=== PATIENT | female | born 1955 | race Caucasian/White ===

== ENCOUNTER 2016-12-07 09:50 | Emergency (ER) | payer OTHER ==
[~2016-12-07] VITALS: Ht 154.9 cm; Wt 62.2 kg
[2016-12-07 10:03] VITALS: BP 170/74; PULSE 67; RESP 16; TEMP 98.2; O2SAT 97
--- NOTE | 2016-12-07 10:22 | PD ---
HPI Chief Complaint: Injury Time Seen by Provider: 10:14 Travel History International Travel<30 days: No Contact w/Intl Traveler<30days: No Traveled to known affect area: No History of Present Illness HPI 61-year-old female complains of right knee pain. Patient states that she twisted her right knee yesterday. Patient states that she has increasing pain and swelling of the right knee since then. Patient has history of right knee ligament injury many years ago. Patient denies any other injury. Patient states the pain is sharp pain localized to the anterior aspect the right knee. Patient denies any pain radiation. Patient states that the pain is worse with movement PFSH Past Medical History ?: Not Social History Tobacco Use: No Allergies-Medications (Allergen,Severity, Reaction): Coded Allergies: Antihistamines - Alkylamine (Verified Allergy, Intermediate, 12/07/16) Reported Meds & Prescriptions Reported Meds & Active Scripts Active No Active Prescriptions or Reported Medications Review of Systems General / Constitutional: No: Fever Eyes: No: Visual changes HENT: No: Headaches Cardiovascular: No: Chest Pain or Discomfort Respiratory: No: Shortness of Breath Gastrointestinal: No: Abdominal Pain Genitourinary: No: Dysuria Musculoskeletal: Positive: Pain Skin: No Rash Neurologic: No: Weakness Psychiatric: No: Depression Endocrine: No: Polydipsia Hematologic/Lymphatic: No: Easy Bruising Physical Exam Narrative GENERAL: Well-nourished, well-developed patient. SKIN: Focused skin assessment warm/dry. HEAD: Normocephalic. EYES: No scleral icterus. No injection or drainage. NECK: Supple, trachea midline. No JVD or lymphadenopathy. CARDIOVASCULAR: Regular rate and rhythm without murmurs, gallops, or rubs. RESPIRATORY: Breath sounds equal bilaterally. No accessory muscle use. GASTROINTESTINAL: Abdomen soft, non-tender, nondistended. MUSCULOSKELETAL: No cyanosis, or edema. BACK: Nontender without obvious deformity. No CVA tenderness. Patient has diffuse soft tissue swelling with effusion right knee joint. Limited range of motion of the right knee secondary to pain. Knee joints stable. Data Data Last Documented VS Vital Signs Date Time Temp Pulse Resp B/P (MAP) Pulse Ox O2 Delivery O2 Flow Rate FiO2 12/07/16 10:03 98.2 67 16 170/74 (106) 97 Orders Orders Knee, Complete (4vws) (12/07/16 10:16) Lidocaine 1% Inj (50 Ml) (Xylocaine 1% I (12/07/16 11:45) Ed Discharge Order (12/07/16 11:57) Splint Or Brace Apply/Monitor (12/07/16 11:57) Immobilizer Knee 20 Inch (12/07/16 ) MDM Medical Decision Making Medical Screen Exam Complete: Yes Emergency Medical Condition: Yes Differential Diagnosis Differential diagnosis including sprain, fracture, dislocation. Narrative Course 61-year-old female with right knee injury. Knee immobilizer. Procedures Procedure Narrative 1% lidocaine local anesthesia. Betadine wash. Right knee aspiration was done with 10 cc syringe and #16-gauge needle. 60 cc of bloody fluid obtained. Band- Aid applied. Diagnosis Primary Impression: Hemarthrosis, right knee Patient Instructions: General Instructions Additional Instructions: Advil Tylenol for pain. Follow-up with orthopedist. Knee immobilizer and crutches. Patient has her own crutches. Med/Other Pt SpecificInfo: No Change to Meds Scripts No Active Prescriptions or Reported Meds Disposition: 01 DISCHARGE HOME Condition: Stable Kris Juan MD Dec 07, 2016 10:22
--- NOTE | 2016-12-07 11:33 | RADRPT ---
EXAM DATE/TIME: 12/07/2016 11:04 [facility] COMPARISON: No previous studies available for comparison. INDICATIONS : Fell yesterday, right knee pain MEDICAL HISTORY : None. SURGICAL HISTORY : None. ENCOUNTER: Initial ACUITY: 2 days PAIN SCORE: 10/10 LOCATION: Right knee FINDINGS: There is a large suprapatellar knee joint effusion. Moderate degenerative changes are noted involvin g the patellofemoral joint. Mild degenerative changes are noted involving the femoral tibial joint. There is no acute fracture or dislocation. CONCLUSION: 1. Large suprapatellar knee joint effusion. 2. 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 3. No acute fracture or dislocation. Dennis Forman MD on December 07, 2016 at 11:23 Board Certified Radiologist. This report was verified electronically.
[2016-12-07] MEDS ORDERED: LIDOCAINE HCL 1% 50 ML VIAL INFIL ONE (11:45)
== END 2016-12-07 12:13 | disposition home or self-care (01) ==
LOC: PHEFT 09:50
DX: M25.061 Hemarthrosis, right knee (principal)
CPT/HCPCS: 20610; 73564; 99283; L1830